=== PATIENT | male | born 1950 | race Caucasian/White ===

== ENCOUNTER 2016-10-22 07:28 | Inpatient (IN) | payer BC ==
--- NOTE | ~2016-10-22 | HP ---
History And Physical [id number] [place]. [address] NAME: CAROLE REESE : 46 STATUS : ADM IN [facility]#: [id number] AGE: 66 ADM/REG DATE : 10/22/16 MR#: [id number] REPORT SERV DATE: 10/22/16 DICTATED BY: HARITHA MARTINEZ DATE: 10/22/16 REPORT STATUS : Draft TRANSCRIBED BY: CRISTEL DATE: 10/22/16 DATE OF ADMISSION: 10/22/2016 CHIEF COMPLAINT: Left-sided weakness. HISTORY OF PRESENT ILLNESS: The patient is a very pleasant 66-year-old white male. He has a longstanding history of coronary artery disease. He has had two separate open-heart surgeries for coronary artery bypass grafting. He has diabetes and hypertension. He has had a previous stroke and he has known carotid artery stenosis. The patient states yesterday afternoon the balance lessened, he noticed he was not mentally as alert. He is left hand did not move properly. He had some clumsiness, at 1030 hours, he noted that his middle finger felt a bit numb and weak, and that he had left arm weakness. He also noticed today when he got up, that his left leg seem to drag a little bit when he tried to walk. He did not decide to seek care until this morning. He has had no fevers or chills. No new cough. He continued to smoke until about three months ago when he quit. He is fairly active and independent. Previously, he did regain all of his neurological function after his previous stroke. PAST MEDICAL HISTORY: 1. CAD with history of CABG x2. 2. Diabetes mellitus. 3. Hypertension. 4. Carotid artery stenosis on the right, which was around 60%. 5. Previous CVA. 6. Hyperlipidemia. 7. Basal cell skin cancer. Presumed in his nares on the right. SOCIAL HISTORY: He smoked one-pack per day. Quit about three months ago. He has had intermittent episodes, where he is abstinent. SOCIAL HISTORY: He has not had a drink in over 25 years. 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 He has two children. ALLERGIES: ATIVAN. FAMILY HISTORY: His mother had congestive heart failure, and there is coronary artery disease in her family. PAST SURGICAL HISTORY: 1. He has had two open-heart surgery/CABG. 2. Appendectomy. 3. Three knee surgeries. HOME MEDICATIONS: Reviewed and attached. REVIEW OF SYSTEMS: History And Physical [address] [address] NAME: CAROLE REESE : 46 STATUS : ADM IN PAT#: [id number] AGE: 66 ADM/REG DATE : 10/22/16 MR#: [id number] REPORT SERV DATE: 10/22/16 DICTATED BY: HARITHA MARTINEZ DATE: 10/22/16 REPORT STATUS : Draft TRANSCRIBED BY: MODJulisa DATE: 10/22/16 A full 10-point review of systems was obtained. Pertinent positives are as mentioned in the HPI. PHYSICAL EXAMINATION: VITAL SIGNS: BP 139/74, pulse 61, respiratory rate 22, sats are 96%, and temperature is 98. GENERAL: Well-developed white male, in no apparent distress. HEENT: Normocephalic, atraumatic. Throat is clear. NECK: Supple. HEART: Regular rate and rhythm. LUNGS: Grossly clear. ABDOMEN: Soft, nontender, and nondistended. EXTREMITIES: Warm and dry. Pulses are 2+ at the feet. SKIN: Intact without rash or lesion. NEUROLOGIC: His speech is intact. He is alert. He is oriented to person, place, and time. Mood and affect are appropriate. He follows commands. His strength is a 3 to 4/5 in the left hand. A 4+/5 in the left arm, 4+/5 in the left leg, and on the right arm and leg it is 5/5. Speech is intact. Cranial nerves 2 through 12 are intact. LABORATORY AND X-RAY: Chest x-ray is essentially clear. Basic metabolic panel is essentially normal. Glucose is 188. Troponins is 0.02. LFTs are normal. CBC is normal. Coags are normal. Brain CT shows old small infarct in the right frontal area as well as a left basal ganglia and mgri-rf-quceucgn cortical volume loss and chronic white matter ischemic change. EKG shows sinus rhythm. ASSESSMENT/PLAN: 1. Likely new subacute cerebrovascular accident in the last 24 hours. The patient did not present in a time window to which he could receive PPI. He actually started having symptoms yesterday afternoon, and awoke with symptoms this morning. I am going to add Plavix to his regimen. I am going to do an MRI and MRA of his brain and neck. We will also add a carotid ultrasound, given that he has previous right-sided known carotid stenosis on a previous ultrasound. Dr. Mireya Mancini is going to see him in consultation. We will have him seen by PT/OT. We will continue the statin therapy. We will allow permissive hypertension. We will follow up on the above aforementioned studies and go from there. I suspect that he may actually end up needing a carotid endarterectomy, but we will see what his studies look like first, then we will likely get Vascular involved. 2. Ulcerated lesion in the right naris. I do not have the path back on this. Probably need to request this result from Dr. Blair, which we will do. Should he need anesthesia for his carotid, it is possible, but we could actually resect this area at the same time via ENT, but we will wait and see what his carotid looks like and what the plans are. 3. Diabetes mellitus. We will add level 2 sliding scale to his regimen. Continue metformin. 4. History of coronary artery disease status post coronary artery bypass graft. Continue Crestor. Continue beta-kirk. Continue aspirin. 5. Tobacco abuse. We will place nicotine patch. 6. Previous cerebrovascular accident. History And Physical [address] [address] NAME: CAROLE REESE : 46 STATUS : ADM IN [facility]#: [id number] AGE: 66 ADM/REG DATE : 10/22/16 MR#: [id number] REPORT SERV DATE: 10/22/16 DICTATED BY: HARITHA MARTINEZ DATE: 10/22/16 REPORT STATUS : Draft TRANSCRIBED BY: MODJulisa DATE: 10/22/16 7. Hypertension. Continue home medications, but we will allow permissive hypertension. 8. Disposition pending above. SURJIT/CRISTEL Haritha Martinez M.D. / [id number] CC: MD Honorio Pena M.D.
--- NOTE | ~2016-10-22 | DS ---
Discharge Summary [facility] [address] [place]. [address] NAME: CAROLE REESE : 46 STATUS : DIS IN PAT#: [id number] AGE: 66 ADM/REG DATE : 10/22/16 MR#: [id number] REPORT SERV DATE: 10/27/16 DICTATED BY: SHAHZAD WANG DATE: 10/27/16 REPORT STATUS : Draft TRANSCRIBED BY: MODL DATE: 10/27/16 ADMISSION DATE: 10/22/2016 DISCHARGE DATE: 10/27/2016 [facility]PITAL DIAGNOSES: 1. Cerebrovascular accident with left-sided weakness improving. 2. History of coronary artery disease. 3. History of diabetes. 4. History of hypertension. CONSULTATIONS: 1. Dr. Mancini, Neurology. 2. Dr. Sanchez, ENT. 3. Dr. Bethea, Cardiology. 4. Dr. Martinez, Vascular Surgery. PROCEDURES: 1. Right carotid endarterectomy done on 10/26/2016. 2. CT scan of the brain done on 10/22/2016, showing no acute intracranial abnormality appreciated at this time; chronic small appearing infarct in the right frontal periventricular white matter, as well as old left basal ganglia lacunar infarct. 3. Carotid ultrasound done on 10/23/2016, showing significant stenosis of proximal right ICA 90% or greater. Doppler findings correlate well with MRI findings. No significant stenosis involving the left carotid artery. Vertebral arteries exhibit antegrade flow. 4. MRI of the brain done on 10/22/2016, showing small 8 mm light acute ischemic infarct within the right periventricular deep white matter within the llamas radiata at the upper margin of the posterior body, right lateral ventricle, stable moderate to advanced diffuse cerebral involutional changes and mild deep white matter chronic microvascular ischemic changes. Small 3 mm old deep white matter infarct, right periventricular deep white matter within the llamas radiata as well as 2 small old lacunar infarct, left basal ganglia. MRA of the neck on the showing high-grade short segment stenosis proximal right ICA 80% to 90% diameter reduction with only small thread of flow signal, significantly progressed since the MRA in 2009, high-grade stenosis proximal right external carotid artery 80% to 90%, normal contour and caliber common carotid arteries, and proximal left external carotid artery. 5. MRI of the brain done on 10/22/2016, showing short segment 50% stenosis, left mid M1 segment appearing new from the 20/10 MRA. Short-segment dropout signal proximal left posterior cerebral artery which may represent torturous flow signal dropout or stable short-segment stenosis. No change from prior exam. Developmental absent left A1 segment with supply to the left anterior cerebral artery from the right anterior circulation. 6. Repeat MRI brain done on 08/26/2016, showing small focal area of restricted diffusion, right parietal periventricular white matter consistent with acute infarct and atrophy, chronic microvascular white matter ischemic changes and minimal old lacunar infarcts. 7. Echocardiogram done on 10/23/2016, showing normal left ventricular systolic function with an EF of 50% to 55%, dilated left atrium, mild diastolic dysfunction, normal right Discharge Summary [address] [address] NAME: CAROLE REESE : 46 STATUS : DIS IN PAT#: [id number] AGE: 66 ADM/REG DATE : 10/22/16 MR#: [id number] REPORT SERV DATE: 10/27/16 DICTATED BY: SHAHZAD WANG DATE: 10/27/16 REPORT STATUS : Draft TRANSCRIBED BY: CRISTEL DATE: 10/27/16 ventricular chamber size, and systolic function, and aortic sclerosis without stenosis. No evidence of ASD or patent foramen ovale. CURRENT PHYSICAL FINDINGS AND HISTORY OF PRESENT ILLNESS: Please see initial dictated H and P by Dr. Martinez. In brief, the patient is a 66-year-old male, who presented with left-sided weakness beginning yesterday afternoon. Vital signs at the time of admission, BP 156/75, no fever during this hospital stay. Heart rates have been 70s to 80s on average. LAB WORK: Initial BMP was unremarkable and has remained so during his hospital stay. Blood sugars were followed and easily controlled with minimal sliding scale insulin. Troponin was negative x3. A1c 8.1. CBC was unremarkable. Urinalysis was negative. HOSPITAL COURSE: The patient was admitted for acute CVA to the floor on the Neurology floor. Home medications were reviewed and ordered appropriately. ENT was consulted for recurrent intranasal lesion. He underwent his neurological workup with the MRI and ultrasound findings noting the carotid stenosis and Vascular was consulted. As previously mentioned, blood sugars were easily controlled. He was started on a statin. He was already on an aspirin. He had no stuttering symptoms or worsening of his left-sided extremities. information security officer also was consulted. Vascular requested Cardiology clearance prior to proceeding with endarterectomy and this was done on 10/23/2016. In the interim, PT and OT continued to follow and assist with his recovery. He underwent carotid endarterectomy with a short stay in the ICU on 10/25/2016, without any problems, however, he felt there was some clumsiness of his hands, so a repeat MRI was done, not showing any new lesions or progression of that. He was transferred out of the ICU. He had an unremarkable stay on the floor. He was reassessed by PT and felt stable for discharge home with outpatient rehab. The patient was comfortable with Neurology, had signed off. Recommended he continue his aspirin, Plavix and statin and follow up with them p.r.n. ENT recommended to follow up 10/30/2016, at their office to continue to monitor the lesion in his nose. Vascular requested a 2-week followup also. He should follow up with his PCP after both of those appointments. NEW PRESCRIPTIONS AT THE TIME OF DISCHARGE: Lipitor 80 one per day; Plavix 75 one per day; he will continue Norvasc 10; his aspirin will be 325 one per day instead of 162; Prinivil 10; Constanza 180; Toprol-XL 25 one per day; metformin 500 t.i.d.; Cerefolin 1 capsule daily, Maxzide 25 half a tablet on Thursday, Thursday, Thursday; Rapaflo 8; nitroglycerin 0.4. He will not restart Crestor. He will take the Lipitor instead. TLF/MODL Shahzad Wang M.D. / [id number] CC: Discharge Summary [address] [address] NAME: CAROLE REESE : 46 STATUS : DIS IN PAT#: [id number] AGE: 66 ADM/REG DATE : 10/22/16 MR#: [id number] REPORT SERV DATE: 10/27/16 DICTATED BY: SHAHZAD WANG DATE: 10/27/16 REPORT STATUS : Draft TRANSCRIBED BY: CRISTEL DATE: 10/27/16 MD Honorio Pena M.D.
--- NOTE | ~2016-10-22 | CN ---
Consultation Report [facility] [address] [place]. [address] NAME: CAROLE BONE : 46 STATUS : ADM IN PAT#: [id number] AGE: 66 ADM/REG DATE : 10/22/16 MR#: [id number] REPORT SERV DATE: 10/23/16 DICTATED BY: LAN MORAN DATE: 10/23/16 REPORT STATUS : Draft TRANSCRIBED BY: MODL DATE: 10/23/16 INPATIENT CONSULTATION DATE OF CONSULTATION: 10/23/2016 SERVICE: Otolaryngology HISTORY OF PRESENT ILLNESS: This is a 66-year-old white male, who was admitted for an acute stroke yesterday. During his admission workup, he was noted to have an ulcerated lesion of the right anterior nasal septum. The patient reported this has been present for approximately nine months and recently brought it to his primary care physician's attention. Biopsy has been performed already. Per the patient, diagnosis was basal cell carcinoma. The patient is also being worked up for critical stenosis of the right carotid artery. He has been placed on Plavix. PAST MEDICAL HISTORY: Includes coronary artery disease, diabetes, hypertension, history of previous stroke, hyperlipidemia. PAST SURGICAL HISTORY: Includes coronary artery bypass grafting x2, appendectomy, three knee surgeries, and tonsillectomy. SOCIAL HISTORY: He is a 4-fose-zbz-day smoker. Reportedly, quit about three months ago. He is a retired processing engineer. ALLERGIES: ATIVAN. FAMILY HISTORY: Significant for congestive heart failure and coronary artery disease. PHYSICAL EXAMINATION: GENERAL: He is awake, alert, in no acute distress. HEENT: Head is normocephalic and atraumatic. There were no ear or external nasal deformities. Oral cavity and oropharynx are normal in appearance. Inside his right naris, involving the cutaneous and mucosal nasal septum, is a round ulcerative lesion. It approximates 1.5 cm, possibly larger. 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 Basal cell carcinoma is notorious for submucosal subcutaneous spread. This would likely be a rather large resection and more importantly of difficult reconstruction given the location. I have not seen the official pathology report, but the physical exam is consistent with basal cell. I recommend outpatient management of this. I would not recommend it in conjunction with the carotid endarterectomy. It will require some planning to determine the appropriate way to reconstruct this deficit which could include removing the anterior septum, the columella, possibly the nasal tip as well. I discussed this with the patient. He can follow up with me following his discharge from the hospital, clinic number is [phone]. Consultation Report [facility] [address] [place]. [address] NAME: CAROLE BONE : 46 STATUS : ADM IN PAT#: [id number] AGE: 66 ADM/REG DATE : 10/22/16 MR#: [id number] REPORT SERV DATE: 10/23/16 DICTATED BY: LAN MORAN DATE: 10/23/16 REPORT STATUS : Draft TRANSCRIBED BY: MODJulisa DATE: 10/23/16 Thank you for involving me in the care of Mr. Bone. If you have any questions, my cell phone is [phone]. PS/MODL Lan Moran MD / [id number] CC: MD Honorio Calixto M.D.
--- NOTE | ~2016-10-22 | CN ---
Consultation Report [facility] [address] [place]. [address] NAME: CAROLE REESE : 46 STATUS : ADM IN PAT#: [id number] AGE: 66 ADM/REG DATE : 10/22/16 MR#: [id number] REPORT SERV DATE: 10/24/16 DICTATED BY: BARBARA MARIN DATE: 10/23/16 REPORT STATUS : Draft TRANSCRIBED BY: MODJulisa DATE: 10/23/16 CARDIOLOGY CONSULT DATE OF CONSULTATION: REFERRING REASON: Cardiac evaluation prior for anticipated right carotid endarterectomy. HISTORY OF PRESENT ILLNESS: This is a pleasant 66-year-old white gentleman, well known to Dr. Souleymane Deleon from [facility], who has been admitted for acute CVA with left arm weakness. MRI revealed acute CVA and MRA of the carotids revealed a high-grade right internal carotid artery stenosis. Of note, the patient has a history of CVA in 2009. He also has court artery disease with redo CABG by Dr. Benítez in 2012. He is a diabetic with preserved systolic function. The patient underwent an echocardiogram earlier today which revealed preserved systolic function again with an EF of 55%. He denied any chest pain, shortness of breath, palpitations, or syncope. His cardiac enzymes remain negative and he remains in normal sinus rhythm. Recently, he has been walking with a cane. His primary care physician noted a bruit above the right carotid, but before it was further evaluated, he suffered a CVA. There are no signs of decompensated heart failure. REVIEW OF SYSTEMS: The rest of review of systems is negative. PAST MEDICAL HISTORY: 1. Coronary artery disease with history of CABG in 1989 and redo CABG by Dr. Benítez in 2012. 2. Preserved systolic function with EF of 55% in 2013 and currently. 3. Diabetes mellitus. 4. Hypertension. 5. History of hyperlipidemia. 6. History of CVA in 2009 and currently. 7. History of right nostril ulcer, possible basal cell carcinoma, under evaluation by ENT. 8. History of acoustic neuroma. ALLERGIES: ATIVAN. SOCIAL HISTORY: The patient is retired. He is . He quit smoking 3 months ago, smoked on and off entire life. He denies drinking alcohol or using street drugs. He is walking with a cane. FAMILY HISTORY: Negative for sudden cardiac deaths or premature coronary artery disease in the family. HOME MEDICATIONS: Amlodipine 10 mg once a day, aspirin 81 mg once a day, Constanza, lisinopril 10 mg once a day, metformin 500 mg three times a day, Toprol-XL 25 mg once a day, Consultation Report [facility] [address] [place]. [address] NAME: CAROLE REESE : 46 STATUS : ADM IN PAT#: [id number] AGE: 66 ADM/REG DATE : 10/22/16 MR#: [id number] REPORT SERV DATE: 10/24/16 DICTATED BY: BARBARA MARIN DATE: 10/23/16 REPORT STATUS : Draft TRANSCRIBED BY: CRISTEL DATE: 10/23/16 nitroglycerin p.r.n., Crestor 5 mg once a day, silodosin 8 mg as needed, Maxzide as needed, and some memory medications, unknown name. PHYSICAL EXAMINATION: GEN - No acute distress. Appears stated age. VITAL SIGNS: Blood pressure 147/67, heart rate 81 and regular. HEENT - Pupils reactive to light and accommodation. Moist mucosa membrane. NECK: No JVD. Normal carotid upstroke. No carotid bruits. LUNGS: Decreased breath sounds bibasilarly, but no crackles. There is some upper extremity mild hemiparesis and decreased pedal pulses bilaterally but no edema. A bruit above the right carotid is noted. COR: Normal S1, S2. No S3 or S4. No significant rub or murmurs. ABD: Soft, nontender, nondistended. EXT: No edema. Pedal pulses strong and equal bilaterally. SKIN: Warm with normal turgor. MS - No kyphosis. NEURO/PSY - Alert and oriented. Nonfocal. LABORATORY DATA: CBC and electrolytes within normal limits. Troponin x2 negative. MRI of the brain as above as well as the MRI of the carotids as above. Electrocardiogram shows sinus bradycardia at 57 beats per minute with old inferior myocardial infarction and nonspecific Q-wave changes but no significant change compared to previous electrocardiogram from 2013. Echocardiogram, normal LV size and systolic function. EF 55%. Mild diastolic dysfunction. Mild left atrial enlargement. No significant valve disease. ASSESSMENT AND PLAN: Cardiac evaluation for anticipated right carotid endarterectomy in that she has had a recent acute cerebrovascular accident with left hemiparesis. Under this prefecture, the patient is [id number]-[id number] risk of perioperative CV complications but these are not further modifiable. Here there are no signs of heart failure or angina. His cardiac enzymes remain negative. His only significant risk factor is his recent CVA and high-grade right internal carotid artery stenosis. I would continue current cardiac medication including beta-blockers. There is no obvious contraindication to proceed with surgery. Dr. Deleon will see the patient tomorrow. Thank you very much for the consult. MAYA/CRISTEL Barbara Marin M.D. / [id number]
--- NOTE | ~2016-10-22 | OP ---
Record Of Operation [facility] [address] [place]. [address] NAME: CAROLE REESE : 46 STATUS : DIS IN PAT#: [id number] AGE: 66 ADM/REG DATE : 10/22/16 MR#: [id number] REPORT SERV DATE: 11/11/16 DICTATED BY: JESSICA MARTINEZ DATE: 10/25/16 REPORT STATUS : Draft TRANSCRIBED BY: MODL DATE: 10/25/16 DATE OF PROCEDURE: 10/25/2016 PREOPERATIVE DIAGNOSIS: Right carotid stenosis with stroke. POSTOPERATIVE DIAGNOSIS: Right carotid stenosis with stroke. PROCEDURE: Right carotid endarterectomy. SURGEON: Jessica Martinez MD ANESTHESIA: General. COMPLICATIONS: None. ESTIMATED BLOOD LOSS: 150 mL HISTORY: The patient is a 66-year-old male with a small right hemispheric stroke and high- grade right carotid stenosis. It was felt that he would benefit for right carotid endarterectomy. This was discussed in detail with the patient and family. They expressed understanding and desired to proceed. DESCRIPTION OF PROCEDURE: The patient was taken to the operating room and placed in the supine position. He was given general anesthesia without complications, head was turned to the left. His neck was prepped and draped in sterile fashion. An incision was created along the anterior border of the sternocleidomastoid muscle taking care to be more than one fingerbreadth away from the angle of the mandible. Bovie cautery to dissect through the subcutaneous tissues and platysma. The sternocleidomastoid muscle was identified, dissection was continued on the anterior border of it. There were multiple vein branches identified; however, the internal jugular vein was not identified. Vein branches were ligated with silk ties and divided. The common carotid artery was identified. This was freed circumferentially and isolated with a vessel loop. Dissection was continued distally onto the internal carotid artery. The hypoglossal nerve was identified and preserved. The internal carotid artery was freed circumferentially, isolated with Vessel loop. The patient given 6000 units of heparin intravenously. Dissection was continued and the external carotid and superior thyroid arteries were freed circumferentially with an isolated vessel loop as well. After more than 3 minutes of heparinization, the internal carotid artery was controlled with a vessel loop followed by the common carotid artery, external carotid artery, and superior thyroid arteries. An 11 blade was used to create an arteriotomy on the common carotid artery. This was extended longitudinally onto the internal carotid artery beyond the area of disease. The 12 shunt was placed into the internal carotid artery. Once good back bleeding was noted, this was placed into the common carotid artery restoring flow to the brain. Endarterectomy was performed in standard fashion with feathering of the proximal and distal end points and eversion endarterectomy on the external carotid artery. The distal endpoint was tacked down with two 7-0 Prolene sutures. The endarterectomy site was copiously irrigated. All loose debris was removed. Once the endarterectomy was felt to Record Of Operation [facility] [address] [facility] [place]. [address] NAME: CAROLE REESE : 46 STATUS : DIS IN PAT#: [id number] AGE: 66 ADM/REG DATE : 10/22/16 MR#: [id number] REPORT SERV DATE: 11/11/16 DICTATED BY: JESSICA MARTINEZ DATE: 10/25/16 REPORT STATUS : Draft TRANSCRIBED BY: CRISTEL DATE: 10/25/16 be adequate, the arteriotomy was closed using an 8 x 80 bovine pericardial patch and running 6-0 Prolene suture. Prior to completion, the shunt was pulled from the lateral aspect. The internal and external carotid arteries were back-bled, the common carotid artery was flushed. The endarterectomy site was copiously irrigated. Upon completion, flow was first restored to the external carotid artery, then after more than five heartbeats to the internal carotid artery. Multiple bleeding points were identified, controlled with 6-0 Prolene suture. Doppler confirmed normal signals in the common carotid, external carotid, and internal carotid arteries. Once hemostasis was achieved, Fibrillar was placed over the closure. The deep tissues and platysma were closed with running 2-0 Vicryl suture. The skin was closed with 4-0 Monocryl suture and Dermabond dressing applied. The patient tolerated the procedure well. He will be extubated in the operating room, and if neurologically stable, taken to recovery. CANDIDA/CRISTEL Jessica Martinez M.D. / [id number] CC: Isaias Jaquez MD
--- NOTE | ~2016-10-22 | CN ---
Consultation Report [facility] [address] [place]. [address] NAME: CAROLE REESE : 46 STATUS : ADM IN PAT#: [id number] AGE: 66 ADM/REG DATE : 10/22/16 MR#: [id number] REPORT SERV DATE: 10/22/16 DICTATED BY: DATE: REPORT STATUS : Draft TRANSCRIBED BY: MODL DATE: 10/22/16 NEUROLOGY CONSULTATION DATE OF CONSULTATION: 10/22/2016 REASON FOR CONSULT: Left-sided hemiparesis, concern for stroke. HISTORY OF PRESENT ILLNESS: This is a 66-year-old male presented to [facility] on 10/22/2016 secondary to left-sided weakness with the patient reports the symptoms started on 10/21/2016 at 1530 hours. The patient was noted to have left-sided weakness involving finger with the patient noted to have loss of dexterity as well as difficulties with fine motor movement as well as difficulty holding on to items. The patient, in addition, also reports numbness in the left dorsum of the hand as well as weakness in the left lower extremity. The patient does reports a previous stroke with the patient having some residual left-sided weakness, but not as severe, and the patient normally ambulate with a cane. The patient as well as the patient's daughter reports a more unsteady ambulation with a cane since the symptom onset. In addition, the patient's daughter reports slow speech, not as much as slurredness of the speech since the symptom onset. The patient as well as the family members reports the improvement of symptom, but the patient is not back to baseline. The patient again does have a history of stroke with the patient's last known stroke occurring in 2007. Prior to the hospitalization, the patient was taking aspirin and is compliant with the home medication. The patient denies any recent illness, fever, chills, nausea, vomiting, chest pain, or shortness of breath. Denies any language difficulties and denies any dysphagia, diplopia, or vertigo sensation. PAST MEDICAL HISTORY: The patient's past medical history is significant for diabetes; hypertension; coronary artery disease, status post coronary artery bypass surgery. The patient denies any previous history of pacemaker placement. The patient also was recently diagnosed with intranasal basal cell cancer and was pending ENT evaluation for surgery. The patient during the previous coronary artery surgery was noted to have a category 2 stenosis in the right internal carotid artery. FAMILY HISTORY: Significant for cancer. SOCIAL HISTORY: The patient quit smoking roughly three months ago. Otherwise, denies alcohol or illicit drug usage. ALLERGIES: THE PATIENT REPORTS ALLERGY TO ATIVAN. MEDICATIONS: The patient's home medication consist of metformin, Bactrim, amlodipine, Crestor, lisinopril, metoprolol, Maxzide, aspirin, silodosin, Constanza, Nitrostat. REVIEW OF SYSTEMS: Negative except for those mentioned in the HPI. Consultation Report [place] [id number] [facility] [place]. [address] NAME: CAROLE REESE : 46 STATUS : ADM IN [facility]#: [id number] AGE: 66 ADM/REG DATE : 10/22/16 MR#: [id number] REPORT SERV DATE: 10/22/16 DICTATED BY: DATE: REPORT STATUS : Draft TRANSCRIBED BY: MODL DATE: 10/22/16 PHYSICAL EXAMINATION: VITAL SIGNS: At the time of evaluation, the patient was noted to have vital signs with T-max of 98.0, heart rate of 55 to 61, respiration of 16 to 20, and blood pressure of 134 to 168 over 68 to 75. GENERAL: The patient is well developed, well nourished, in no acute distress. CARDIOVASCULAR: Regular rate and rhythm. No carotid bruits are otherwise auscultated. PULMONARY: Clear to auscultation bilaterally. NEUROLOGICAL EXAMINATION: Generally, the patient is alert and oriented to person, place, year, and month, as well as the date. Follows simple and 2-step commands. Minimal dysarthria was noted at the time of evaluation. No aphasia was otherwise noted. Intact registration recall. Able to provide coherent history without difficulties. Again, follows simple and 2-step commands without difficulties. Cranial nerves II through XII, pupils equal, round, and reactive to light. Extraocular eye movement was noted to be intact with intact peripheral vision. No clear visual neglect was otherwise appreciated. The patient was noted to have mild decreased in nasolabial fold as well as a symmetric smile with mild left facial weakness at the time of evaluation. Midline tongue. Normal palatal movement. Appeared to have normal hearing. Otherwise, reports a symmetrical sensation in bilateral face. The patient demonstrated 4/5 left upper as well as left lower extremity strength with the patient noted to have 4+/5 left lower extremity distal foot dorsiflexion and plantar flexion strength. Reports a mild decrease in sensation in the left lower extremity. Otherwise, reports symmetrical sensation in bilateral upper extremity. Normal finger-to- nose examination without ataxia. Pronator drift was noted in the left upper extremity at the time of evaluation. The patient ambulates with a cane with a minimal circumduction gait in the left lower extremity. LABORATORY STUDY: Otherwise, demonstrates sodium 138, potassium 4.2, chloride 103, bicarb 23, BUN of 17, creatinine 1.05, glucose of 188, calcium of 8.8 with a white blood cell count of 4.7, hemoglobin of 15.0, hematocrit of 42.3, and platelet count of 203. CT scan of the brain demonstrated no acute process. IMPRESSION: Left hemiparesis with the symptom onset on 10/21/2016 at roughly 1530 hours with the patient noted to have improving symptom. Also, not quite back to baseline. The patient's current NIH Stroke Scale was noted to be 5 with the patient does have a history of stroke in 2007 resulting in residual left-sided weakness that is now slightly worse. According to the patient's medical record, the patient does have previous carotid Doppler study in 2012 with the results revealed right internal carotid artery category 2 stenosis. We will repeat carotid Doppler study as well as obtain MRI and MRA of the head and neck. Meanwhile, we will obtain stroke workup. As the patient was noted to have previous carotid artery stenosis by Doppler study, we will place the patient on dual anti-platelet therapy with aspirin, Plavix, as well as a statin. Pending MRA of the neck as well as carotid Doppler study results, we may obtain Vascular Surgery consult. We will also obtain PT/OT evaluation and treatment for the patient's weakness. Consultation Report [facility] [address] [place]. [address] NAME: CAROLE REESE : 46 STATUS : ADM IN [facility]#: [id number] AGE: 66 ADM/REG DATE : 10/22/16 MR#: [id number] REPORT SERV DATE: 10/22/16 DICTATED BY: DATE: REPORT STATUS : Draft TRANSCRIBED BY: MODL DATE: 10/22/16 RECOMMENDATION: 1. PT/OT. 2. MRI and MRA of the head and neck. 3. Carotid Doppler study. 4. Plavix 75 mg p.o. daily. 5. Continue aspirin and statin. 6. Fasting lipid panel and hemoglobin A1c. [facility]/MODL Sarmad Mancini MD / [id number] CC: MD Honorio Pena M.D.
[~2016-10-22 07:28] MED LIST: ALLEGRA180 PO; ASA5GR PO; ASAB PO; ASAEC PO; CRESTOR10 PO; CRESTOR20 MG PO; EXFORGE1 TA3 PO; FLONASE NAS; FORTAMET500 MG PO; GLUCOPHAGE1000 MG PO; GLUCPH PO; NITROII10C TOP; NITROQUICK0.4 MG SL; NITROSTAT0.4 MG SL; NORV10 PO; OMNICEF300 PO; PLAVIX PO; PRIN10 PO; PRIN20 PO; RAPAFLO8 MG PO; TOPXL25 PO; VICODINTAB PO; ZESTRIL30 MG PO
[2016-10-22 08:40] LABS: BASOPHILS 0.9 %; BASOPHILS ABSOLUTE 0.04 10/3/uL (0.0-0.16); EOSINOPHILS 3.6 %; EOSINOPHILS ABSOLUTE 0.17 10/3/uL (0.0-0.53); ER CBC TAT 0 Hrs 03 MinsNP; HEMATOCRIT 42.3 % (40.0-51.0); LYMPHOCYTES 32.4 %; LYMPHOCYTES ABSOLUTE 1.52 10/3/uL (0.67-4.30); MANUAL DIFF NO %; MEAN CORPUS HGB CONC 35.5 g/dL (32.0-36.0); MEAN CORPUSCULAR HEMOGLOB 30.5 pg (26.0-34.0); MEAN CORPUSCULAR VOLUME 86.2 fL (80-100); MEAN PLATELET VOLUME 9.5 fL (9.2-13.0); MONOCYTES 10.7 %; NEUTROPHILS 52.4 %; NEUTROPHILS ABSOLUTE 2.46 10/3/uL (2.02-8.40); PLATELET COUNT 203 10/3/uL (150-400); RBC DISTRIBUTION WIDTH 13.1 % (12.0-16.0); RED CELL COUNT 4.91 10/6/uL (4.7-6.1); WHITE BLOOD CELLS 4.7 10/3/uL (4.5-10.5)
[2016-10-22 08:46] LABS: PARTIAL THROMBO TIME 25.5 SEC (22.5-37.2); PROTIME (NOT ORD) 13.5 SEC (12.0-14.5)
[2016-10-22 08:56] LABS: A/G RATIO 1.3 (0.7-1.9); ALBUMIN 3.9 G/DL (3.5-5.0); ALKALINE PHOSPHATASE 66 U/L (45-117); BUN (BLOOD UREA NITROGEN) 17 MG/DL (6-23); CALCIUM, SERUM 8.8 MG/DL (8.5-10.4); CHLORIDE, SERUM 103 MMOL/L (96-112); CREATININE 1.05 MG/DL (0.70-1.30); GFR AFRICAN AMERICAN 84 ML/MIN (>=60); GFR NON AFRICAN AMERICAN 73 ML/MIN (>=60); GLUCOSE, SERUM 188 MG/DL (60-99); POTASSIUM, SERUM 4.2 MMOL/L (3.5-5.3); SGOT(AST) 19 U/L (5-40); SGPT(ALT) 24 U/L (5-65); SODIUM, SERUM 138 MMOL/L (135-148); TOTAL BILIRUBIN 0.8 MG/DL (0-1.2); TOTAL PROTEIN 6.9 G/DL (6.0-8.5); TROPONIN I <0.02 NG/ML (<0.05)
[2016-10-22 08:57] LABS: CO2 (CARBON DIOXIDE) 23 MMOL/L (24-34)
[2016-10-22] MEDS ORDERED: GLUMETZA500 MG PO (09:33)
[2016-10-22] MEDS ORDERED: BACDS PO (09:34)
[2016-10-22] MEDS ORDERED: CEREFOLINNAC PO (09:35)
[2016-10-22] MEDS ORDERED: NORV10 PO (09:35)
[2016-10-22] MEDS ORDERED: PRIN10 PO (09:36)
[2016-10-22] MEDS ORDERED: CRESTOR5 MG PO (09:36)
[2016-10-22] MEDS ORDERED: MAX25 PO (09:37)
[2016-10-22] MEDS ORDERED: TOPXL25 PO (09:37)
[2016-10-22] MEDS ORDERED: ASAB PO (09:38)
[2016-10-22] MEDS ORDERED: NITROSTAT0.4 MG SL (09:39)
[2016-10-22] MEDS ORDERED: RAPAFLO8 MG PO (09:39)
[2016-10-22] MEDS ORDERED: ALLEGRA180 PO (09:39)
[2016-10-22 15:50] LABS: BASOPHILS 0.7 %; BASOPHILS ABSOLUTE 0.03 10/3/uL (0.0-0.16); EOSINOPHILS 3.3 %; EOSINOPHILS ABSOLUTE 0.15 10/3/uL (0.0-0.53); HEMATOCRIT 41.5 % (40.0-51.0); HEMOGLOBIN 15.1 g/dL (13.6-17.8); IMMATURE GRANULOCYTES 0.2 %; IMMATURE GRANULOCYTES ABSOLUTE 0.01 10/3/uL (0.0-0.11); LYMPHOCYTES ABSOLUTE 1.89 10/3/uL (0.67-4.30); MANUAL DIFF NO %; MEAN CORPUS HGB CONC 36.4 g/dL (32.0-36.0); MEAN CORPUSCULAR HEMOGLOB 31.3 pg (26.0-34.0); MEAN CORPUSCULAR VOLUME 86.1 fL (80-100); MEAN PLATELET VOLUME 9.5 fL (9.2-13.0); MONOCYTES ABSOLUTE 0.46 10/3/uL (0.21-1.20); NEUTROPHILS 44.8 %; NEUTROPHILS ABSOLUTE 2.07 10/3/uL (2.02-8.40); PLATELET COUNT 189 10/3/uL (150-400); RBC DISTRIBUTION WIDTH 13.1 % (12.0-16.0); RED CELL COUNT 4.82 10/6/uL (4.7-6.1); WHITE BLOOD CELLS 4.6 10/3/uL (4.5-10.5)
[2016-10-22 15:59] LABS: INTERNATIONAL NORMAL RATI 1.1 UNITS (-); PARTIAL THROMBO TIME 26.3 SEC (22.5-37.2); PROTIME (NOT ORD) 14.2 SEC (12.0-14.5)
[2016-10-22 16:17] LABS: CHOL/HDL RATIO(NOT ORDER) 4.7 (0-5); CHOLESTEROL 163 MG/DL (< 200); HDL CHOLESTEROL 35 MG/DL (> 39); LDL CHOLESTEROL 64 MG/DL (< 130); NON-HDL CHOLESTEROL 128 MG/DL (< 160); TRIGLYCERIDE 321 MG/DL (< 150); TROPONIN I <0.02 NG/ML (<0.05)
[2016-10-23 09:17] LABS: WBC (NOT ORDERED) (RFLEX) 0 (0-5)
[2016-10-23 09:26] LABS: ASCORBIC ACID (UR NOT ORDER) NEG (NEG); BILIRUBIN, URINE NEGATIVE (NEG); KETONE, URINE NEGATIVE (NEG); LEUKOCYTE ESTERASE(NOT OR NEG (NEG)
[2016-10-24 06:43] LABS: BASOPHILS 0.8 %; BASOPHILS ABSOLUTE 0.04 10/3/uL (0.0-0.16); EOSINOPHILS 3.2 %; EOSINOPHILS ABSOLUTE 0.17 10/3/uL (0.0-0.53); HEMATOCRIT 44.3 % (40.0-51.0); HEMOGLOBIN 15.6 g/dL (13.6-17.8); LYMPHOCYTES 33.1 %; LYMPHOCYTES ABSOLUTE 1.74 10/3/uL (0.67-4.30); MEAN CORPUS HGB CONC 35.2 g/dL (32.0-36.0); MEAN CORPUSCULAR HEMOGLOB 31.4 pg (26.0-34.0); MEAN PLATELET VOLUME 9.5 fL (9.2-13.0); MONOCYTES 12.8 %; MONOCYTES ABSOLUTE 0.67 10/3/uL (0.21-1.20); NEUTROPHILS 50.1 %; NEUTROPHILS ABSOLUTE 2.63 10/3/uL (2.02-8.40); PLATELET COUNT 174 10/3/uL (150-400); RED CELL COUNT 4.97 10/6/uL (4.7-6.1); WHITE BLOOD CELLS 5.3 10/3/uL (4.5-10.5)
[2016-10-24 06:45] LABS: MANUAL DIFF NO %; MEAN CORPUSCULAR VOLUME 89.1 fL (80-100)
[2016-10-24 06:59] LABS: BUN (BLOOD UREA NITROGEN) 16 MG/DL (6-23); CALCIUM, SERUM 8.9 MG/DL (8.5-10.4); CHLORIDE, SERUM 104 MMOL/L (96-112); CO2 (CARBON DIOXIDE) 23 MMOL/L (24-34); CREATININE 1.14 MG/DL (0.70-1.30); GFR AFRICAN AMERICAN 76 ML/MIN (>=60); GFR NON AFRICAN AMERICAN 66 ML/MIN (>=60); POTASSIUM, SERUM 4.2 MMOL/L (3.5-5.3); SODIUM, SERUM 138 MMOL/L (135-148)
[2016-10-24 07:01] LABS: GLUCOSE, SERUM 147 MG/DL (60-99)
[2016-10-25 04:08] LABS: BASOPHILS 0.6 %; BASOPHILS ABSOLUTE 0.03 10/3/uL (0.0-0.16); EOSINOPHILS 4.4 %; EOSINOPHILS ABSOLUTE 0.21 10/3/uL (0.0-0.53); HEMATOCRIT 44.1 % (40.0-51.0); HEMOGLOBIN 15.6 g/dL (13.6-17.8); IMMATURE GRANULOCYTES 0.4 %; IMMATURE GRANULOCYTES ABSOLUTE 0.02 10/3/uL (0.0-0.11); LYMPHOCYTES 38.7 %; LYMPHOCYTES ABSOLUTE 1.85 10/3/uL (0.67-4.30); MANUAL DIFF NO %; MEAN CORPUS HGB CONC 35.4 g/dL (32.0-36.0); MEAN CORPUSCULAR VOLUME 87.5 fL (80-100); MEAN PLATELET VOLUME 9.5 fL (9.2-13.0); MONOCYTES 11.1 %; MONOCYTES ABSOLUTE 0.53 10/3/uL (0.21-1.20); NEUTROPHILS 44.8 %; NEUTROPHILS ABSOLUTE 2.14 10/3/uL (2.02-8.40); PLATELET COUNT 187 10/3/uL (150-400); RBC DISTRIBUTION WIDTH 12.9 % (12.0-16.0); RED CELL COUNT 5.04 10/6/uL (4.7-6.1); WHITE BLOOD CELLS 4.8 10/3/uL (4.5-10.5)
[2016-10-25 04:16] LABS: BUN (BLOOD UREA NITROGEN) 19 MG/DL (6-23); CALCIUM, SERUM 8.4 MG/DL (8.5-10.4); CHLORIDE, SERUM 104 MMOL/L (96-112); CO2 (CARBON DIOXIDE) 22 MMOL/L (24-34); CREATININE 1.28 MG/DL (0.70-1.30); GFR AFRICAN AMERICAN 66 ML/MIN (>=60); GFR NON AFRICAN AMERICAN 57 ML/MIN (>=60); SODIUM, SERUM 139 MMOL/L (135-148)
[2016-10-25 04:17] LABS: GLUCOSE, SERUM 183 MG/DL (60-99); POTASSIUM, SERUM 4.2 MMOL/L (3.5-5.3)
[2016-10-26 04:42] LABS: BASOPHILS 0.3 %; BASOPHILS ABSOLUTE 0.02 10/3/uL (0.0-0.16); EOSINOPHILS 0.5 %; EOSINOPHILS ABSOLUTE 0.04 10/3/uL (0.0-0.53); IMMATURE GRANULOCYTES 0.3 %; IMMATURE GRANULOCYTES ABSOLUTE 0.02 10/3/uL (0.0-0.11); LYMPHOCYTES 23.2 %; LYMPHOCYTES ABSOLUTE 1.78 10/3/uL (0.67-4.30); MEAN CORPUS HGB CONC 35.1 g/dL (32.0-36.0); MEAN CORPUSCULAR HEMOGLOB 31.3 pg (26.0-34.0); MEAN CORPUSCULAR VOLUME 88.9 fL (80-100); MEAN PLATELET VOLUME 9.1 fL (9.2-13.0); MONOCYTES ABSOLUTE 0.54 10/3/uL (0.21-1.20); NEUTROPHILS 68.7 %; NEUTROPHILS ABSOLUTE 5.28 10/3/uL (2.02-8.40); PLATELET COUNT 162 10/3/uL (150-400); RED CELL COUNT 4.16 10/6/uL (4.7-6.1)
[2016-10-26 04:47] LABS: MANUAL DIFF NO %; WHITE BLOOD CELLS 7.7 10/3/uL (4.5-10.5)
[2016-10-26 05:01] LABS: CALCIUM, SERUM 8.4 MG/DL (8.5-10.4); CHLORIDE, SERUM 106 MMOL/L (96-112); CO2 (CARBON DIOXIDE) 23 MMOL/L (24-34); CREATININE 0.92 MG/DL (0.70-1.30); GFR AFRICAN AMERICAN 99 ML/MIN (>=60); GFR NON AFRICAN AMERICAN 85 ML/MIN (>=60); GLUCOSE, SERUM 150 MG/DL (60-99); POTASSIUM, SERUM 3.9 MMOL/L (3.5-5.3); SODIUM, SERUM 139 MMOL/L (135-148)
[2016-10-26 05:10] LABS: BUN (BLOOD UREA NITROGEN) 15 MG/DL (6-23)
[2016-10-27] MEDS ORDERED: ASA5GR PO (16:57)
[2016-10-27] MEDS ORDERED: LIPITOR80 MG PO (16:59)
[2016-11-26] MEDS ORDERED: REPATHA SC (11:17)
[2016-11-26] MEDS ORDERED: PLAVIX PO (11:21)
[2017-04-03] MEDS ORDERED: AMARYL1 MG PO (11:36)
[2017-04-03] MEDS ORDERED: CRESTOR (11:38)
[2017-04-03] MEDS ORDERED: CEREFOLI1 PO (11:40)
[2017-04-03] MEDS ORDERED: MAG OXIDE250 MG PO (11:41)
[2017-04-03] MEDS ORDERED: FLONASE NAS (11:42)
== END 2016-10-27 17:52 | DRG 38 ==
LOC: ER 07:28 → 1SO 09:02 → CVICU 10-25 08:12 → 2SO 10-26 20:39
PROVIDERS: Hospitalist; Nurse Practitioner Family; Surgery
PROC: 03CK0ZZ Extirpation of Matter from Right Internal Carotid Artery, Open Approach (ICD-10-PCS; principal; 2016-10-26)
DX: I63.231 Cerebral infarction due to unspecified occlusion or stenosis of right carotid arteries (principal); I69.354 Hemiplegia and hemiparesis following cerebral infarction affecting left non-dominant side; N39.0 Urinary tract infection, site not specified; E11.9 Type 2 diabetes mellitus without complications; I10 Essential (primary) hypertension; F17.210 Nicotine dependence, cigarettes, uncomplicated; C44.311 Basal cell carcinoma of skin of nose; I25.10 Atherosclerotic heart disease of native coronary artery without angina pectoris; E78.2 Mixed hyperlipidemia; F43.10 Post-traumatic stress disorder, unspecified; Z88.5 Allergy status to narcotic agent; Z80.9 Family history of malignant neoplasm, unspecified; Z95.1 Presence of aortocoronary bypass graft; Z82.49 Family history of ischemic heart disease and other diseases of the circulatory system; Z79.4 Long term (current) use of insulin
CPT/HCPCS: 70450; 70544; 70548; 70551; 70551-52; 71010; 80048; 80053; 80061; 81001; 82962; 83036; 83735; 84484; 85025; 85610; 85730; 87641; 88304; 88311; 93005; 93306; 93880; 97116-GP; 97161-GP; 97164-GP; 97166-GO; 97168-GO; 99285; A9270-GY; A9577; C1768; J0690; J1170; J2250; J2370; J2405; J2710; J3010

== ENCOUNTER 2016-12-03 05:48 | Day surgery (SDC) | payer BC, OTHER ==
[2016-11-27 08:45] LABS: BASOPHILS 0.5 %; BASOPHILS ABSOLUTE 0.03 10/3/uL (0.0-0.16); EOSINOPHILS 1.3 %; EOSINOPHILS ABSOLUTE 0.07 10/3/uL (0.0-0.53); HEMATOCRIT 40.4 % (40.0-51.0); HEMOGLOBIN 14.3 g/dL (13.6-17.8); IMMATURE GRANULOCYTES 0.2 %; IMMATURE GRANULOCYTES ABSOLUTE 0.01 10/3/uL (0.0-0.11); LYMPHOCYTES 34.4 %; LYMPHOCYTES ABSOLUTE 1.89 10/3/uL (0.67-4.30); MEAN CORPUS HGB CONC 35.4 g/dL (32.0-36.0); MEAN CORPUSCULAR HEMOGLOB 30.9 pg (26.0-34.0); MEAN CORPUSCULAR VOLUME 87.3 fL (80-100); MEAN PLATELET VOLUME 9.1 fL (9.2-13.0); MONOCYTES 6.2 %; MONOCYTES ABSOLUTE 0.34 10/3/uL (0.21-1.20); NEUTROPHILS 57.4 %; NEUTROPHILS ABSOLUTE 3.16 10/3/uL (2.02-8.40); PLATELET COUNT 169 10/3/uL (150-400); RBC DISTRIBUTION WIDTH 13.6 % (12.0-16.0); RED CELL COUNT 4.63 10/6/uL (4.7-6.1); WHITE BLOOD CELLS 5.5 10/3/uL (4.5-10.5)
[2016-11-27 08:46] LABS: MANUAL DIFF NO %
[2016-11-27 08:57] LABS: CALCIUM, SERUM 8.8 MG/DL (8.5-10.4); CHLORIDE, SERUM 105 MMOL/L (96-112); CO2 (CARBON DIOXIDE) 29 MMOL/L (24-34); CREATININE 0.91 MG/DL (0.70-1.30); GFR AFRICAN AMERICAN 100 ML/MIN (>=60); GFR NON AFRICAN AMERICAN 86 ML/MIN (>=60); GLUCOSE, SERUM 189 MG/DL (60-99); SODIUM, SERUM 141 MMOL/L (135-148)
[2016-11-27 08:58] LABS: BUN (BLOOD UREA NITROGEN) 16 MG/DL (6-23)
--- NOTE | ~2016-12-03 | OP ---
Record Of Operation [facility] [address] [place]. [address] NAME: CAROLE REESE : 46 STATUS : [place] [facility]#: [id number] AGE: 66 ADM/REG DATE : 12/03/16 MR#: [id number] REPORT SERV DATE: 12/03/16 DICTATED BY: LAN MORAN DATE: 12/03/16 REPORT STATUS : Draft TRANSCRIBED BY: MODL DATE: 12/03/16 DATE OF PROCEDURE: 12/03/2016 SERVICE: Otolaryngology. PREOPERATIVE DIAGNOSIS: Invasive basal cell carcinoma of the right anterior nasal septum. POSTOPERATIVE DIAGNOSIS: Invasive basal cell carcinoma of the right anterior nasal septum. PROCEDURE: 1. Wide local excision with frozen section margins of basal cell carcinoma measuring 3 x 2 cm. 2. Composite auricular harvest graft for using in the nose. 3. Full-thickness skin graft. SURGEON: Lan Moran MD ANESTHESIA: General endotracheal anesthesia. ESTIMATED BLOOD LOSS: 5 mL. COMPLICATIONS: None. SPECIMEN: Wide local excision, including a frozen margins of basal cell carcinoma of the right anterior septum. Please see nurse's notes for specific numbering of specimen. FINDINGS: The patient had an ulcerated erosive basal cell carcinoma based on the cutaneous mucosal junction, anterior nasal septum involving the right medial crura. Negative margins were obtained at the periosteum of the anterior cartilaginous septum and the cutaneous margins anteriorly on the columella, the floor of the nose, and posteriorly on the mucosa overlying the nasal septum. STATEMENT OF MEDICAL NECESSITY: This is a 66-year-old male, who I was consulted on as an inpatient after carotid endarterectomy in October. He already had a biopsy showing invasive basal cell carcinoma. I was consulted for evaluation of surgical management. Preoperatively, we planned for multiple different scenarios regarding this tumor extirpation including the above-mentioned procedure. STATEMENT OF OPERATION: The patient was brought to the operating room in supine position, transferred over to the operating room table. After all pressure points were padded and general endotracheal anesthesia was established, the columella and underneath the lesion on the nasal septum was injected with 2 mL of 1% lidocaine with epinephrine. Margins were drawn with a surgical marking pen. The patient was draped out and prepped to include the right ear and the right neck using a 15C blade, and the pre planned margins, the lesion was removed, and marked anteriorly, and inferiorly with sutures, it was passed off as a wide local excision. At this point it measured about 2 x 2 cm. The pathologist returned Record Of Operation [address] [place]. [address] NAME: CAROLE REESE : 46 STATUS : [place] [facility] [place]#: [id number] AGE: 66 ADM/REG DATE : 12/03/16 MR#: [id number] REPORT SERV DATE: 12/03/16 DICTATED BY: LAN MORAN DATE: 12/03/16 REPORT STATUS : Draft TRANSCRIBED BY: MODL DATE: 12/03/16 diagnosis as a positive deep superior, posterior, and anterior margins. I re-resected all of these areas and the columellar with anterior resection with 3/4th of the columellar skin was removed. The superior involved removal of the medial crura, and the cutaneous skin margin up to the rim of the nasal ala, and posteriorly the mucosal margin was taken along with the perichondrium of the anterior nasal septum, these were sent separately, they returned margins free of tumor. At this point, I began the reconstruction. I made a postauricular incision with a 1 x 1 cm skin graft attached to an auricular cartilage graft. This was harvested post-auricularly and placed in saline around a moist saline gauze. The wound was then closed with 4-0 Vicryl sutures and 5-0 fast absorbing gut sutures. A bolster dressing was applied using Xeroform, and dental rolls, and secured with nylon sutures. This was then taken and fixed into the area of the missing medial crura and overlying columellar skin. This cartilage portion was secured using a trans-columellar suture with 5-0 PDS sutures. The skin was approximated to the [employer] skin with 6-0 fast absorbing gut sutures. Next, a supraclavicular 2 x 2 cm full-thickness skin graft was harvested in the usual fashion. It was taken to the back table and thinned. The resulting wound was closed with 3 0 Vicryl sutures and Dermabond. The skin graft was then applied to the nose, it was secured in the anterior, superior, and posterior margins using 6-0 fast absorbing gut sutures. Next, a bolster dressing was applied to oppose the full-thickness skin graft to the underlying tissue using Xeroform and a nylon suture. This concluded the case. The patient was turned back over to Anesthesia, where he awoke and was transferred to the PACU in stable condition. PS/MODL Lan Moran MD / [id number] CC: MD Honorio Calixto M.D.
[~2016-12-03 05:48] MED LIST changes: +BACDS PO; +CEREFOLINNAC PO; +CRESTOR5 MG PO; +GLUMETZA500 MG PO; +LIPITOR80 MG PO; +MAX25 PO; +REPATHA SC
[2017-04-03] MEDS ORDERED: AMARYL1 MG PO (11:36)
[2017-04-03] MEDS ORDERED: CRESTOR (11:38)
[2017-04-03] MEDS ORDERED: CEREFOLI1 PO (11:40)
[2017-04-03] MEDS ORDERED: MAG OXIDE250 MG PO (11:41)
[2017-04-03] MEDS ORDERED: FLONASE NAS (11:42)
== END 2016-12-03 17:17 | disposition home or self-care (01) ==
LOC: SDC 05:48
PROVIDERS: Otolaryngology
PROC: 0HR1X73 Replacement of Face Skin with Autologous Tissue Substitute, Full Thickness, External Approach (ICD-10-PCS; principal; 2016-12-03 07:15)
DX: C44.311 Basal cell carcinoma of skin of nose (principal); I10 Essential (primary) hypertension; E11.9 Type 2 diabetes mellitus without complications; Z95.1 Presence of aortocoronary bypass graft; Z88.8 Allergy status to other drugs, medicaments and biological substances
CPT/HCPCS: 80048; 82962; 85025; 88305; 88331; 88332; 93005; A9270-GY; J0690; J2250; J2405; J2710; J3010